=== PATIENT | female | born 1935 | race Caucasian/White ===

== ENCOUNTER 2019-11-28 08:12 | Inpatient (IN) | payer MEDICARE, OTHER ==
[~2019-11-28] VITALS: Ht 149.9 cm; Wt 92.0 kg
--- NOTE | 2019-11-28 09:07 | PHYS DOC ---
Past History Past Medical History: GERD, High Cholesterol, Hypertension, Hypothyroid Past Surgical History: Appendectomy, Hysterectomy, Oophorectomy, Other Additional Past Surgical Histo: BILAT KNEE; Alcohol Use: None General Adult EDM: Chief Complaint: DIZZY/LIGHT HEADED HPI: HPI: 84-year-old female presents with dizziness. Patient states that she has had intermittent feeling of dizziness for couple months. The last 2 days it has been persistent every time goes from lying to sitting. She sits there for 1 hour and then stands up. She does not have as much dizziness when she stands up. She defines it as a room spinning sensation. She does have to hold onto things as she walks and she finds this very irritating. She denies trauma, but has admitted falling couple times recently. She told this to the nurse not to me. She has been eating and drinking normally. She denies fever, chills, chest pain, shortness of breath. She is on blood pressure medicine which includes hydrochlorothiazide. She feels like she has been urinating even more than normal recently. Review of Systems: Review of Systems: Constitutional: Denies fever or chills Eyes: Denies change in visual acuity HENT: Denies nasal congestion or sore throat Respiratory: Denies cough or shortness of breath Cardiovascular: Denies chest pain or edema GI: Denies abdominal pain, nausea, vomiting, bloody stools or diarrhea : Urinary frequency Musculoskeletal: Denies back pain or joint pain Integument: Denies rash Neurologic: Dizziness. Denies headache, focal weakness or sensory changes Endocrine: Denies polyuria or polydipsia Lymphatic: Denies swollen glands Psychiatric: Denies depression or anxiety Heart Score: Risk Factors: Risk Factors: DM, Current or recent (<one month) smoker, HTN, HLP, family history of CAD, obesity. Risk Scores: Score 0 - 3: 2.5% MACE over next 6 weeks - Discharge Home Score 4 - 6: 20.3% MACE over next 6 weeks - Admit for Clinical Observation Score 7 - 10: 72.7% MACE over next 6 weeks - Early Invasive Strategies Allergies: Allergies: Allergies Coded Allergies Type Severity Reaction Last Updated Verified Penicillins Allergy Unknown Hives 11/28/19 Yes adhesive tape Allergy Unknown 11/28/19 Yes milk Allergy Unknown 11/28/19 Yes Uncoded Allergies Type Severity Reaction Last Updated Verified CHOLESTEROL MEDICINE Allergy Unknown 11/28/19 UNKNOWN PAIN MED Allergy Unknown 11/28/19 Physical Exam: PE: Constitutional: Well developed, morbidly obese, well nourished, no acute distress, non-toxic appearance. [] HENT: Normocephalic, atraumatic, bilateral external ears normal, oropharynx moist, no oral exudates, nose normal. [] Eyes: PERRLA, EOMI, conjunctiva normal, no discharge. [] Neck: Normal range of motion, no tenderness, supple, no stridor. [] Cardiovascular: Heart rate regular rhythm, no murmur [] Lungs & Thorax: Bilateral breath sounds clear to auscultation [] Abdomen: Bowel sounds normal, soft, no tenderness, no masses, no pulsatile masses. [] Skin: Warm, dry, no erythema, no rash. [] Back: No tenderness, no CVA tenderness. [] Extremities: No tenderness, no cyanosis, no clubbing, ROM intact, no edema. [] Neurologic: Alert and oriented X 3, normal motor function, normal sensory function, no focal deficits noted. [] Psychologic: Affect normal, judgement normal, mood normal. [] Current Patient Data: Vital Signs: Vital Signs Date Time Temp Pulse Resp B/P (MAP) Pulse Ox O2 Delivery O2 Flow Rate FiO2 11/28/19 08:34 99.1 77 19 157/92 (113) 97 Room Air EKG: EKG: Sinus rhythm, rate 72, normal axis, no ST elevation or depression. [] Radiology/Procedures: Radiology/Procedures: [] Impressions: EXAM: CT Head without IV contrast INDICATION: Reason: dizziness / Spl. Instructions: / History: TECHNIQUE: Multi-detector row CT images were obtained of the head without the use of IV contrast. All CT scans performed at this facility utilize dose optimization techniques as appropriate to the exam, including the following: Automated exposure control and adjustment of the mA and/or KV according to patient size (this includes techniques or standardized protocols for targeted exams where dose is indication/reason for exam). COMPARISON: None FINDINGS: BRAIN PARENCHYMA: No evidence of acute intraparenchymal hemorrhage or infarct. Generalized cortical volume loss and white matter low density compatible chronic ischemic microvascular changes present. 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 VENTRICLES & EXTRA-AXIAL SPACES: Ventricles are within normal limits. Basilar cisterns are patent. No pathologic extra-axial fluid collection or mass. ORBITS: Orbital contents are unremarkable. SINUSES: Visualized paranasal sinuses and mastoid air cells are clear. OSSEOUS & SOFT TISSUES: Calvarium and skull base are intact. IMPRESSION: No acute intracranial pathology. Electronically signed by: Dwayne Fuller MD (11/28/2019 12:01 PM) [id number] DICTATED AND SIGNED BY: DWAYNE FULLER MD DATE: 11/28/19 1201 CC: MARY ELLEN LAI DO; TIESHA MCLEAN ~ EXAM: AP View of the chest DATE: 11/28/2019 8:32 AM INDICATION: dizzy COMPARISON: 03/05/2013 FINDINGS: The heart is not enlarged. Aorta is tortuous. Mild bibasilar opacities and right suprahilar opacities may represent atelectasis or developing consolidation. Trace bilateral pleural effusions. No pneumothorax. IMPRESSION: 1. Bilateral parenchymal opacities lung base opacities may represent atelectasis or developing consolidation. 2. Trace bilateral pleural effusions. Electronically signed by: Anderson Lenz MD (11/28/2019 9:31 AM) [id number] DICTATED AND SIGNED BY: ANDERSON LENZ MD DATE: 11/28/19 0931 CC: MARY ELLEN LAI DO; TIESHA MCLEAN ~ Course & Med Decision Making: Course & Med Decision Making Pertinent Labs and Imaging studies reviewed. (See chart for details) The patient's labs are unremarkable. Her chest x-ray suggest possibility of bilateral pneumonia. I have given her azithromycin and Rocephin IV. I will admit her to the hospital. I spoke to Dr. Moreno and he has accepted the patient for admission. [] Dragon Disclaimer: Dragsravani Disclaimer: This electronic medical record was generated, in whole or in part, using a voice recognition dictation system. Departure Departure: Impression: Primary Impression: Pneumonia Qualified Codes: J18.9 - Pneumonia, unspecified organism Disposition: HOME/RESIDENCE PRIOR TO ADM Condition: STABLE Referrals: TIESHA MCLEAN (PCP) Justification of Admission: Justification of Admission: Justification of Admission Dx: Yes Comminuty Aquired Pneumonia: Med-High Risk Pt MARY ELLEN LAI DO Nov 28, 2019 09:07
[2019-11-28] MEDS ORDERED: IV NORMAL SALINE 1,000ML 1,000 ML IV ONE (09:15)
[2019-11-28] MEDS ORDERED: MECLIZINE 12.5 MG TABLET. PO ONE (09:15)
[2019-11-28 09:34] LABS: BASO % 1 % (0-3); EOS # 0.1 x10^3/uL (0.0-0.7); EOS % 1 % (0-3); HEMATOCRIT 35.3 % (36.0-47.0); LYMPH # 1.1 x10^3/uL (1.0-4.8); LYMPH % 19 % (24-48); MEAN CORPUSCULAR HEMOGLOBIN 33 pg (25-35); MEAN CORPUSCULAR HGB CONC 34 g/dL (31-37); MEAN CORPUSCULAR VOLUME 97 fL (79-100); MONO # 0.5 x10^3/uL (0.0-1.1); MONO % 8 % (0-9); NEUT # 4.2 x10^3uL (1.8-7.7); NEUT % 71 % (31-73); PLATELET COUNT 438 x10^3/uL (140-400); RED BLOOD COUNT 3.63 x10^6/uL (3.50-5.40); RED CELL DISTRIBUTION WIDTH 14.1 % (11.5-14.5); WHITE BLOOD COUNT 5.9 x10^3/uL (4.0-11.0)
--- NOTE | 2019-11-28 09:34 | RAD ---
EXAM: AP View of the chest DATE: 11/28/2019 8:32 AM INDICATION: dizzy COMPARISON: 03/05/2013 FINDINGS: The heart is not enlarged. Aorta is tortuous. Mild bibasilar opacities and right suprahilar opacities may represent atelectasis or developing consolidation. Trace bilateral pleural effusions. No pneumothorax. IMPRESSION: 1. Bilateral parenchymal opacities lung base opacities may represent atelectasis or developing consolidation. 2. Trace bilateral pleural effusions. Electronically signed by: Anderson Cyr MD (11/28/2019 9:31 AM) [id number]
[2019-11-28 09:35] LABS: CALCIUM 9.4 mg/dL (8.5-10.1); CREATININE 1.1 mg/dL (0.6-1.0); GFR 47.3; POTASSIUM 4.5 mmol/L (3.5-5.1)
[2019-11-28 09:48] LABS: ALBUMIN 3.6 g/dL (3.4-5.0); TOTAL BILIRUBIN 0.4 mg/dL (0.2-1.0); TOTAL PROTEIN 7.3 g/dL (6.4-8.2)
--- NOTE | 2019-11-28 09:50 | EKG ---
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
[2019-11-28] MEDS ORDERED: AZITHROMYCIN 500 MG in IV NORMAL SALINE 250ML 250 ML IV ONE (11:45)
--- NOTE | 2019-11-28 12:04 | RAD ---
EXAM: CT Head without IV contrast INDICATION: Reason: dizziness / Spl. Instructions: / History: TECHNIQUE: Multi-detector row CT images were obtained of the head without the use of IV contrast. All CT scans performed at this facility utilize dose optimization techniques as appropriate to the exam, including the following: Automated exposure control and adjustment of the mA and/or KV according to patient size (this includes techniques or standardized protocols for targeted exams where dose is indication/reason for exam). COMPARISON: None FINDINGS: BRAIN PARENCHYMA: No evidence of acute intraparenchymal hemorrhage or infarct. Generalized cortical volume loss and white matter low density compatible chronic ischemic microvascular changes present. 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 VENTRICLES & EXTRA-AXIAL SPACES: Ventricles are within normal limits. Basilar cisterns are patent. No pathologic extra-axial fluid collection or mass. ORBITS: Orbital contents are unremarkable. SINUSES: Visualized paranasal sinuses and mastoid air cells are clear. OSSEOUS & SOFT TISSUES: Calvarium and skull base are intact. IMPRESSION: No acute intracranial pathology. Electronically signed by: Felisha Fuller MD (11/28/2019 12:01 PM) [id number]
[2019-11-28 12:10] LABS: BILIRUBIN,URINE NEG (NEG); CLARITY,URINE CLEAR; COLOR,URINE YELLOW; GLUCOSE,URINE NEG (NEG)
[2019-11-28 12:11] LABS: BACTERIA,URINE 0 /HPF (0-FEW); NITRITE,URINE NEG (NEG); RBC,URINE OCC /HPF (0-2); SQUAMOUS EPITHELIAL CELL,UR FEW /LPF; UROBILINOGEN,URINE 0.2 mg/dL (0.2 mg/dL); WBC,URINE OCC /HPF (0-4)
[2019-11-28] MEDS ORDERED: AZITHROMYCIN 500 MG VIAL. IV ONE (12:26)
[2019-11-28] MEDS ORDERED: IV NORMAL SALINE 50ML 50 ML ONE (12:26)
[2019-11-28] MEDS ORDERED: IV NORMAL SALINE 250ML 250 ML ONE (12:26)
[2019-11-28] MEDS ORDERED: cefTRIAXone SODIUM 1 GM VIAL ONE (12:27)
[2019-11-28 14:30] VITALS: BP 168/60
[2019-11-28 15:13] VITALS: BP 164/66
--- NOTE | 2019-11-28 15:32 | HP ---
ADMIT DATE: 11/28/2019 HISTORY OF PRESENT ILLNESS: The patient is an 84-year-old female patient, who was brought to the Emergency Room of [facility] with complaint of dizziness and lightheadedness. The patient stated that she has intermittent feeling of dizziness for a couple of months. For the last 2 days, it has been persistent every time goes from lying to sitting and she sits there for one-hour then stands up. She does not have any much dizziness when she stands up. She defines it as a room spinning sensation. She does have to hold onto things when she walks and finds this very irritating. She denied any trauma. She has admitted to falling multiple times. She admitted that to me, although she does not say that to the ER physician and her granddaughter also told me that she has been falling multiple times. She denied, however, any nausea or vomiting. Denied any tingling or numbness. Denied any localized weakness. Denied any headache, blurring of vision or diplopia. She was evaluated in the Emergency Room and was extensively evaluated. Her CT scan of the head showed that the patient has no evidence of acute intraparenchymal hemorrhage or infarct, generalized cortical volume loss and white matter low density compatible with chronic ischemic microvascular changes present, tiny lacunar chronic infarct in the right thalamus and in the left frontal periventricular white matter are also noted. The ventricles are within normal limits. Basilar cisterns are patent. No pathology extraaxial fluid collection or mass. The orbital contents are unremarkable. Visualized paranasal sinuses and mastoid air cells are clear. Osseous and soft tissues of the calvarium and skull base are intact. Her chest x-ray showed the patient has mild bibasilar opacities and right suprahilar opacities, may represent atelectasis or developing consolidation, trace bilateral pleural effusion, no pneumothorax. Therefore, the patient was admitted with the diagnoses of acute vestibular neuronitis and possible pneumonia. She was actually swabbed for COVID-19 and was started her on IV Rocephin and Zithromax. She was put on droplet precaution until we get the result of COVID-19. I will start her also on meclizine and consult the neurologist for evaluation and treatment. PAST MEDICAL HISTORY: Significant for hypertension, chronic bronchitis, hypothyroidism, and overactive bladder. PAST SURGICAL HISTORY: Significant for total abdominal hysterectomy, bilateral salpingo-oophorectomy, appendectomy, bilateral cataract extraction. She has also bilateral arthroscopic knee surgery, 2 broken arms, left index finger fracture, status post open reduction and internal fixation. She also has esophagogastroduodenoscopy and colonoscopy with polypectomy. ALLERGIES: SHE IS ALLERGIC TO PENICILLIN, TAPE AND ASPIRIN. MEDICATIONS: She is currently on levothyroxine 100 mcg once a day, losartan/hydrochlorothiazide 100/12.5 one tablet once a day, Nexium 20 mg once a day, citalopram 10 mg once a day. She is also on Centrum Women once a day, ___ one a day, iron 650 mg once a day, Caltrate 600 mg once a day. FAMILY HISTORY: She has one brother younger and has coronary artery disease. She has 4 sisters are all younger, one of them has cancer. Her father in his 50s because of congestive heart failure. Mother at the age of 80 because of stomach cancer. SOCIAL HISTORY: She is , lives alone. She has one stillborn and her daughter because of stomach cancer in her 60s. She has 3 sons and 2 daughters that are alive and healthy. She is an ex-smoker, quit about 8 years ago. She does not drink alcohol or use any recreational drugs. 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 REVIEW OF SYSTEMS: The patient denied any blurring of vision, did have bilateral cataract extraction, but denied any glaucoma or macular degeneration. Denied any earache, tinnitus or sensorineural deafness. Denied any nosebleeds, stuffy nose or postnasal drip. She has history of chronic sinusitis. She denied any sore throat, sore tongue, toothache, hoarseness of voice or difficulty swallowing. Denied any nausea, vomiting, diarrhea or constipation. Denied any hematemesis, melena or hematochezia. Denied any dysuria or hematuria, but did complain of frequency and nocturia. Denied any chest pain, shortness of breath, orthopnea, paroxysmal nocturnal dyspnea. Denied any cough, phlegm or hemoptysis. Did complain of dizziness and lightheadedness and describes feeling as if things spinning around. She is unsteady when she stands up and walks using furniture to support herself. PHYSICAL EXAMINATION: GENERAL: On arrival to the Emergency Room, she looked well and was clearly in no apparent respiratory distress. No pallor, jaundice, cyanosis or thyromegaly. No jugular venous distention. No limb edema. VITAL SIGNS: Her heart rate was 77, blood pressure 157/92, temperature was 99.1, respiratory rate was 19 and oxygen saturation was 97%. HEAD, EYES, EARS, NOSE AND THROAT: Showed normocephalic, atraumatic. NECK: Supple. HEART: Showed normal first and second heart sounds. No gallop or murmur. CHEST: Clear to auscultation. No crepitation or rhonchi. ABDOMEN: Distended, soft, nontender. NEUROLOGIC: She was awake, alert, responding appropriately. All her cranial nerves are intact. EXTREMITIES: She moves all extremities without difficulty. She definitely has no nystagmus and no evidence of any cerebellar dysfunction. LABORATORY DATA: Her lab work on arrival showed a white cell count 5900, hemoglobin 12, hematocrit 35, MCV 97 and platelet count of 438,000 with normal manual differential. Her serum sodium was 130, potassium 4.5, chloride 95, bicarbonate 31, anion gap of 4, BUN 13, creatinine 1.1, estimated GFR was 47 mL per minute, her glucose 115, calcium was 9.4. Total bilirubin, AST, ALT, alkaline phosphatase were normal. Her beta natriuretic peptide was 638. Total protein was 7.3, albumin was 3.6. Urinalysis was essentially unremarkable. Her chest x-ray showed that she has bilateral parenchymal opacities, lung base opacities may represent atelectasis or developing consolidation. She has trace bilateral pleural effusion, so the patient was admitted. CT scan showed chronic ischemic microvascular changes. He has also tiny lacunar chronic infarct in the right thalamus and the left frontal periventricular white matter. She was admitted with: 1. Acute vestibular neuronitis. 2. Community-acquired pneumonia. 3. Hyponatremia, likely due to thiazide diuretics as well as escitalopram. 4. Syndrome of inappropriate antidiuretic hormone secretion. Other medical problems include hypertension, hypothyroidism and chronic bronchitis. My plan is to continue with meclizine. I will continue all her home medication. I will hold on hydrochlorothiazide given her hyponatremia. I will consult Dr. Kurtz as well as physical and occupational therapy. ENDY PAREDES MD DR: AJITH/neville JOB#: [id number] / [id number]
[2019-11-28] MEDS ORDERED: LEVO100T5 PO (15:34)
[2019-11-28] MEDS ORDERED: LOSA1TAB25 PO (15:34)
[2019-11-28] MEDS ORDERED: FERR236T2 PO (15:34)
[2019-11-28] MEDS ORDERED: ESOM20CA PO (15:34)
[2019-11-28] MEDS ORDERED: CA/D1TAB11 PO (15:34)
[2019-11-28] MEDS ORDERED: ESCITALOPRAM OX10 MG PO (15:34)
[2019-11-28] MEDS ORDERED: MULT-647 PO (15:34)
[2019-11-28] MEDS ORDERED: MULT-650 PO (15:34)
--- NOTE | 2019-11-28 17:04 | NUR ---
PATIENT IS 84 Y O PLEASANT FEMALE, ADMITTED TO THE UNIT FROM ED, PT ARRIVED BY EMS , TRANSFERRED WITH ASSIST X 2. PATIENT IS A/O X4, C/O DIZZINESS. PATIENT WAS TESTED FOR COVID IN ED, PATIENT IS PLACED ON ISOLATION, TEST FOR COVID IS PENDING. PT DOES NOT EXPERIENCE ANY COUGH, SOA, DENIES ANY OTHER S/S R/T COVID. PATIENT ORIENTED TO THE ROOM AND HOSPITAL POLICIES, PT VERBALIZED UNDERSTANDING. CONSULT FOR DR JUARES PLACED AND PAGED. WILL CONTINUE TO MONITOR.
[2019-11-28 19:30] VITALS: BP 170/62
[2019-11-28] MEDS ORDERED: MELA3TAB4 PO (21:18)
[2019-11-28] MEDS: MELATONIN 3 MG TABLET PO PRN (21:56)
[2019-11-28] MEDS: MECLIZINE 12.5 MG TABLET. PO PRN (21:58)
[2019-11-28 22:32] VITALS: BP 183/80
--- NOTE | 2019-11-29 05:50 | NUR ---
Pt's BP steadily rising overnight. 181/72 reading this AM. notified and ordered to give 0900 dose of Losartan now. Will notify oncoming RN and recheck BP in 1 hr.
[2019-11-29 06:00] VITALS: BP 181/72
[2019-11-29] MEDS ORDERED: LOSARTAN 50 MG TABLET. ONE (06:08)
[2019-11-29] MEDS: LOSARTAN 50 MG TABLET. PO SCH (06:19)
[2019-11-29 07:47] LABS: HEMATOCRIT 25.3 % (36.0-47.0); HEMOGLOBIN 8.6 g/dL (12.0-15.5); RED BLOOD COUNT 2.55 x10^6/uL (3.50-5.40); RED CELL DISTRIBUTION WIDTH 14.2 % (11.5-14.5); WHITE BLOOD COUNT 4.7 x10^3/uL (4.0-11.0)
[2019-11-29 08:01] LABS: ALBUMIN 3.2 g/dL (3.4-5.0); ALBUMIN/GLOBULIN RATIO 0.9 (1.0-1.7); CALCIUM 8.9 mg/dL (8.5-10.1); CREATININE 0.9 mg/dL (0.6-1.0); GFR 59.7; POTASSIUM 4.5 mmol/L (3.5-5.1); TOTAL BILIRUBIN 0.4 mg/dL (0.2-1.0); TOTAL PROTEIN 6.7 g/dL (6.4-8.2)
[2019-11-29] MEDS: PANTOPRAZOLE 40 MG TABLET. PO SCH (08:25)
[2019-11-29] MEDS: FERROUS SULFATE 325 MG TABLET. PO SCH (08:25)
[2019-11-29] MEDS: CETIRIZINE HCL 10 MG TABLET PO SCH (08:25)
[2019-11-29] MEDS ORDERED: [UNRECOGNIZED DRUG - OTHER] PO SCH (09:00)
[2019-11-29] MEDS ORDERED: IRON PO SCH (09:00)
[2019-11-29] MEDS ORDERED: LUTEIN PO SCH (09:00)
[2019-11-29] MEDS ORDERED: MULTIVITS MIN PO SCH (09:00)
[2019-11-29] MEDS ORDERED: LEVOTHYROXINE 100 MCG TABLET PO SCH (09:00)
[2019-11-29] MEDS ORDERED: [UNRECOGNIZED DRUG - OTHER] PO SCH (09:00)
[2019-11-29 10:36] VITALS: BP 157/74
[2019-11-29] MEDS: AZITHROMYCIN 250 MG TABLET. PO SCH (14:03)
[2019-11-29] MEDS ORDERED: CALCIUM CARBONATE 500 MG TAB.CHEW PO PRN (14:30)
[2019-11-29 15:43] VITALS: BP 172/68
--- NOTE | 2019-11-29 16:55 | NUR ---
TEST FOR COVID RESULT IS NEGATIVE, PATIENT DOES NOT EXHIBIT S/S RELATED TO COVID VIRUS. MD NOTIFIED, AIRBORNE AND CONTACT PRECAUTIONS ARE NO LONGER NEEDED, PT IS OFF THE ISOLATION.
--- NOTE | 2019-11-29 17:32 | PN ---
DATE: SUBJECTIVE: The patient is sitting at the edge of the bed, eating breakfast comfortably. When I examined her, she did complain of left-sided headache. Continued to complaining of dizziness and things are spinning around, particularly if she attempted to lie flat. She did work with physical therapy this morning, although she could not get out to the corridor as her COVID status still pending. PHYSICAL EXAMINATION: GENERAL: When I examined her, she looked well and was clearly in no apparent respiratory distress. She was pale, but no jaundice or cyanosis. No lymphadenopathy, no thyromegaly. No jugular venous distention. No lower limb edema. VITAL SIGNS: Her heart rate was 70, blood pressure 157/74, temperature was 97.9, respiratory rate 20, and oxygen saturation was 96%. HEAD, EYES, EARS, NOSE AND THROAT: Showed normocephalic, atraumatic. NECK: Supple. HEART: Showed normal first and second heart sounds. No gallop, rub or murmur. CHEST: Clear to auscultation. No crepitation or rhonchi. ABDOMEN: Distended, soft, nontender. NEUROLOGIC: She was awake, alert, responding appropriately. All cranial nerves intact. She moves extremities without difficulty. She ambulates without assistance or assistive devices. Examination of both ears showed normal external pinna, normal external auditory meatus and the tympanic membrane on both sides was normal. Her intake and output are incompletely recorded. LABORATORY DATA: Her lab work this morning showed a serum sodium of 132, potassium 4.5, chloride 99, bicarbonate 27, anion gap of 6, BUN 9, creatinine 0.9, estimated GFR was 59 mL per minute. Her glucose was 97, calcium was 8.9. Total bilirubin, AST, ALT, alkaline phosphatase were normal. Total protein was 6.7, albumin was 3.2. Her white cell count was 4700, hemoglobin 8.6, hematocrit 25, MCV 99 and platelet count 275,000. Urinalysis was essentially unremarkable. ASSESSMENT: 1. Acute vestibular neuronitis. 2. Community-acquired pneumonia. 3. Hyponatremia, likely due to thiazide diuretics as well as citalopram. 4. She is known to have hypertension, hypothyroidism, overactive bladder. PLAN: To continue with IV antibiotic. Continue with her medications including meclizine 12.5 mg every 6 hours as needed. I will wait for the result of her COVID test and evaluation by Dr. Kurtz and we will decide further management accordingly. ENDY PAREDES MD DR: AJITH/neville JOB#: [id number] / [id number]
[2019-11-29 19:43] VITALS: BP 159/59
--- NOTE | 2019-11-29 21:58 | NUR ---
Pt was laying down in bed during assessment. Pt states she feels less dizzy but still has dizzy spells during the day. Pt was pleasant and orientated x4. Pt denies any complaints of pain during assessment. Pt. family member dropped off shoes in ED. Nursing timekeeping supervisor brought shoes up to unit. Shoes where then given to pt. and documented in pt. belonging. Pt. states she is ready to go home tomorrow. Pt. is now resting comfortably in bed. Call light within reach. Will continue to monitor.
[2019-11-29 22:25] VITALS: BP 170/61
--- NOTE | 2019-11-30 03:31 | CONS ---
DATE OF CONSULTATION: 11/28/2019 PULMONARY CONSULTATION REFERRING PHYSICIAN: Dr. Moreno. REASON FOR CONSULTATION: Severe dizziness. HISTORY OF PRESENT ILLNESS: This is an 84-year-old right-handed female who was admitted through Emergency Room on account of intermittent dizziness described as "spinning of the head" for approximately 2 months. These symptoms have worsened in the last 2 days and the dizziness and the spinning is aggravated by lying back into the bed and sometimes when she changes her body positions or turning head quickly. She denies nausea, vomiting, chest pain, shortness of breath, palpitation, dysarthria or dysphagia. The patient admitted to several falls because of the dizziness. She denies any head injuries. 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 The patient stated she has been seen recently by ENT specialist and she probably has sinusitis. The patient was placed on meclizine at 12.5 mg every 6 hours p.r.n. for dizziness. She was swabbed for COVID-19, but the result is still pending. Chest x-ray revealed evidence of bilateral pleural effusion and mild bibasilar opacities and right suprahilar opacities. It was thought that patient might have pneumonia and she was placed on Rocephin and Zithromax intravenously. PAST MEDICAL HISTORY: Significant for hypertension, bronchitis, hypothyroidism and overactive bladder. PAST SURGICAL HISTORY: Positive for total abdominal hysterectomy, appendectomy, bilateral cataract extraction, bilateral arthroscopic knee surgeries, fracture of both arms, fracture of the left index finger and polypectomy by colonoscopy. SOCIAL HISTORY: The patient is . She lives by herself. Daughter, at the age of 60, from gastric cancer. She had 2 daughters and 3 sons. She denies smoking, alcohol drinking or illicit drug use. FAMILY HISTORY: One brother had coronary artery disease. One sister had cancer. Father at age of 50 because of congestive heart failure and mother at the age of 80 due to gastric cancer. CURRENT HOME MEDICATIONS: Levothyroxine 100 mcg daily, losartan/hydrochlorothiazide 100/12.5 mg daily, Nexium 20 mg daily, citalopram 10 mg daily and multivitamins and aspirin along with vitamin D and calcium. ALLERGIES: PENICILLIN, TAPE and ASPIRIN. REVIEW OF SYSTEMS: A 12-point review of system was performed as mentioned above in history of present illness. PHYSICAL EXAMINATION: GENERAL: Well-developed, well-nourished female, not in acute distress. She weighs 93 kilos. VITAL SIGNS: Blood pressure 170/62, respiratory rate 20, pulse is 65, temperature 98.3, oxygen saturation 96% on room air. HEENT: Normocephalic, atraumatic, otherwise unremarkable. NECK: Supple. Negative for carotid bruit, lymphadenopathy or thyromegaly. LUNGS: Clear to A and P. CARDIOVASCULAR: Regular rate and rhythm, normal S1, S2. There is no S3, S4 or murmurs. ABDOMEN: Soft. Bowel sounds positive. EXTREMITIES: Negative for cyanosis, clubbing or pitting edema. NEUROLOGICAL EXAM: Mental Status: The patient is alert and oriented x 3. Speech is fluent. There is no language dysfunction. Memory, judgment, and abstracting thinking are normal. The patient denies hallucination or delusion. CRANIAL NERVES: Visual babb are full. The pupils are reactive to light and accommodation. The extraocular movements are intact. There is no nystagmus. There is no facial motor or sensory deficit. Hearing is slightly diminished on the left side. The palate is elevated symmetrically. Sternocleidomastoid muscles are powerful bilaterally. The patient shrugs her shoulders symmetrically, protrudes her tongue in the midline without fasciculation or atrophy. MOTOR: No focal muscle bulk was seen. The tone is normal. Strength is 5/5 throughout. SENSORY EXAMINATION: Revealed normal pinprick, light touch, vibratory and position senses. Deep tendon reflexes were asymmetric and hypoactive with absent Achilles responses. Gait not tested. LABORATORY DATA: CBC revealed white blood cells of 5.9 thousand, hemoglobin 12, hematocrit of 35.3, platelet count 438,000. Chemistry revealed sodium of 130, potassium 4.5, chloride 95, CO2 of 31, BUN 13, creatinine 1.1, glucose 115, calcium is 9.4. Liver enzymes are normal. ____. Troponin level is normal. Urinalysis is normal. Coronavirus PCR non-detected. IMPRESSION: 1. Intermittent dizzy spell described as spinning, rule out vestibulitis versus benign positional vertigo. 2. Possible community-acquired pneumonia. 3. Multiple medical problems include hypertension, hypothyroidism and chronic bronchitis. RECOMMENDATIONS: 1. Continue with current management initiated by Dr. Moreno. 2. Agree with meclizine and increase it gradually to 25 mg t.i.d. 3. Vestibular exercise and physical therapy. M Jimmy AUGUST MD DR: CATARINO/neville JOB#: [id number] / [id number]
[2019-11-30 05:36] VITALS: BP 194/79
[2019-11-30] MEDS: LEVOTHYROXINE 100 MCG TABLET PO SCH (06:14)
[2019-11-30 06:40] LABS: HEMATOCRIT 36.9 % (36.0-47.0); HEMOGLOBIN 12.4 g/dL (12.0-15.5)
[2019-11-30 07:04] LABS: CALCIUM 9.4 mg/dL (8.5-10.1); GFR 52.8; POTASSIUM 3.8 mmol/L (3.5-5.1)
[2019-11-30] MEDS: LOSARTAN 50 MG TABLET. PO SCH (08:18)
[2019-11-30] MEDS: CETIRIZINE HCL 10 MG TABLET PO SCH (08:18)
[2019-11-30] MEDS: PANTOPRAZOLE 40 MG TABLET. PO SCH (08:18)
[2019-11-30] MEDS: AZITHROMYCIN 250 MG TABLET. PO SCH (08:18)
[2019-11-30] MEDS: MECLIZINE 12.5 MG TABLET. PO PRN (08:18)
[2019-11-30] MEDS: FERROUS SULFATE 325 MG TABLET. PO SCH (08:18)
[2019-11-30] MEDS: amLODIPine BESYLATE 5 MG TABLET PO SCH (09:07)
[2019-11-30 09:54] VITALS: BP 154/63
[2019-11-30 14:01] VITALS: BP 126/83
[2019-11-30] MEDS ORDERED: MECLIZINE 12.5 MG TABLET. PO PRN (15:45)
--- NOTE | 2019-11-30 15:55 | PN ---
DATE: SUBJECTIVE: The patient continues to have mild dizziness described as spinning, mainly when she changes her body positions and turn the head backwards. She denies nausea, vomiting, headaches, chest pain, shortness of breath or palpitation, dysarthria or dysphagia. OBJECTIVE: GENERAL: Well-developed, well-nourished female, not in any acute distress. VITAL SIGNS: Blood pressure 159/59, respiratory rate 20, pulse is 66 and regular, temperature 98.1, oxygen saturation 94% on room air. HEENT: Normocephalic, atraumatic, otherwise unremarkable. NECK: Supple. Negative for carotid bruit, lymphadenopathy or thyromegaly. LUNGS: Clear to A and P. CARDIOVASCULAR: Regular rate and rhythm. Normal S1, S2. There is no S3, S4 or murmur. ABDOMEN: Soft. Bowel sounds positive. EXTREMITIES: Negative for cyanosis, clubbing or edema. NEUROLOGICAL EXAM: Normal mental status and intact cranial nerves. There is no focal motor or sensory deficit. Deep tendon reflexes were asymmetric and hypoactive with absent Achilles responses. Gait: The stance is more steady. LABORATORY DATA: CBC revealed white blood cells of 4.7 thousand, hemoglobin 8.6, hematocrit 25.3, platelet count 275,000. Chemistry: Sodium 132, potassium 4.5, chloride 99, CO2 of 27, BUN 6, creatinine 0.9, glucose is 97. Liver enzymes are normal. IMPRESSION: 1. Dizziness, described as vertigo, aggravated by changing head positions, mainly turning backwards. When she changed her body positions and turning the head, she will not feel much vertigo. Underlying possible vestibulopathy versus benign positional vertigo may have contributed to the current symptoms; however, posterior fossa pathology should be ruled out and can be done by doing MRI as an outpatient. 2. Multiple medical problems include hypertension, hypothyroidism, chronic bronchitis. 3. Significant change in hemoglobin, compared to that from yesterday, which suggest anemia. 4. Possible community-acquired pneumonia. RECOMMENDATIONS: 1. Continue with current management initiated by Dr. Moreno. 2. Repeat CBC in the morning. 3. Continue with vestibular exercise and physical therapy. M Jimmy AUGUST MD DR: CATARINO/neville JOB#: [id number] / [id number]
--- NOTE | 2019-11-30 19:19 | PN ---
DATE: 11/30/2019 SUBJECTIVE: The patient continues to have intermittent dizziness described as spinning mainly when she tilts her head backward. She denies nausea, vomiting, chest pain, shortness of breath or palpitation. Repeat CBC today revealed hemoglobin is 12.4 which is back to the baseline. I think the hemoglobin reported yesterday was not correct. The patient has had elevated blood pressure throughout the night. Therefore, ____ at 5 mg has been added. Blood pressure now is back to the baseline. OBJECTIVE: GENERAL: Well-developed, well-nourished female, not in acute distress. VITAL SIGNS: Blood pressure 159/59, respiratory rate 20, pulse is 66, temperature is 98.1, oxygen saturation 94% on room air. HEENT: Normocephalic, atraumatic, otherwise, unremarkable. NECK: Supple. Negative for carotid bruit, lymphadenopathy or thyromegaly. LUNGS: Clear to A and P. CARDIOVASCULAR: Regular rate and rhythm, normal S1, S2. ABDOMEN: Soft. Bowel sounds positive. EXTREMITIES: Negative for cyanosis, clubbing or edema. NEUROLOGICAL EXAM: Normal mental status and intact cranial nerves. There is no focal motor or sensory deficit. Deep tendon reflexes were hypoactive with absent Achilles responses. Gait: The stance is steady. The patient tilted her head backward and she felt spinning. IMPRESSION: 1. Vertigo induced by tilting the head backwards and changing her body positions or turning head quickly. 2. Multiple medical problems include hypertension, hypothyroidism and community-acquired pneumonia. RECOMMENDATIONS: 1. Continue with current management initiated by Dr. Moreno. 2. Vestibular exercise and physical therapy. 3. In case of continuous vertigo, brain MRI may be performed on an outpatient basis. M Jimmy AUGUST MD DR: CATARINO/neville JOB#: [id number] / [id number]
[2019-11-30 19:30] VITALS: BP 145/65
--- NOTE | 2019-11-30 20:02 | PN ---
DATE: SUBJECTIVE: The patient was admitted with worsening vertigo with things are spinning around. She continued to be unsteady on her feet. She unfortunately is unable to climb stairs. She has to climb about 12 stairs in her home. She lives alone. She also has pneumonia and when I examined her this afternoon, she was sitting in chair, in no apparent respiratory distress; however, she continued to have episodes of dizziness where she is very unsteady on walking. PHYSICAL EXAMINATION: GENERAL: When I examined her, she was somewhat pale, nonjaundiced, cyanosis or thyromegaly. No jugular venous distention. No limb edema. VITAL SIGNS: Her heart rate was 65, blood pressure was 126/83, temperature was 98.4, respiratory rate 20, and oxygen saturation was 95%. HEAD, EYES, EARS, NOSE, AND THROAT: Normocephalic, atraumatic. NECK: Supple. HEART: Showed normal first and second heart sounds. No gallop, rub or murmur. CHEST: Clear to auscultation. No crepitation or rhonchi. ABDOMEN: Distended, soft, nontender. No guarding or rigidity. No organomegaly. All hernial orifice intact. Bowel sounds normal. NEUROLOGIC: She is awake, alert, responding appropriately. All cranial nerves intact. She moves extremities without difficulty. She ambulates with a walker; however, she continued to be unsteady. Her intake over the last 24 hours was 2016. No output was recorded. LABORATORY DATA: Her lab work this morning showed hemoglobin 12.4, hematocrit 36.9 and her chemistry showed a serum sodium 136, potassium 3.8, chloride 99, bicarbonate 30, anion gap of 7, BUN 10, creatinine 1, estimated GFR was 53 mL per minute. Her glucose was 96 and calcium was 9.4. Her total protein was 6.7, albumin 3.2. ASSESSMENT: 1. Acute vestibular neuronitis versus benign positional vertigo. The patient continued to be unsteady on her feet. 2. Community-acquired pneumonia. 3. Hypertension. 4. Hypothyroidism. 5. Chronic bronchitis. 6. Hyponatremia that has resolved. PLAN: My plan is to continue with IV Rocephin and Zithromax. Continue with added amlodipine for better control of her blood pressure. As per Dr. Kurtz's recommendation, I will increase her meclizine to 25 mg every 6 hours. ENDY PAREDES MD DR: AJITH/neville JOB#: [id number] / [id number]
[2019-11-30 23:14] VITALS: BP 159/63
[2019-12-01] MEDS: LEVOTHYROXINE 100 MCG TABLET PO SCH (05:08)
[2019-12-01 05:39] VITALS: BP 180/73
[2019-12-01] MEDS: PANTOPRAZOLE 40 MG TABLET. PO SCH (08:23)
[2019-12-01] MEDS: AZITHROMYCIN 250 MG TABLET. PO SCH (08:24)
[2019-12-01] MEDS: LACTOBACILLUS RHAMNOSUS GG 1 CAPSULE. PO SCH ×2 (08:24→20:34)
[2019-12-01] MEDS: FERROUS SULFATE 325 MG TABLET. PO SCH (08:24)
[2019-12-01] MEDS: LOSARTAN 50 MG TABLET. PO SCH (08:24)
[2019-12-01] MEDS: amLODIPine BESYLATE 5 MG TABLET PO SCH (08:24)
[2019-12-01] MEDS: CETIRIZINE HCL 10 MG TABLET PO SCH (08:29)
[2019-12-01 11:03] VITALS: BP 157/59
--- NOTE | 2019-12-01 12:35 | PN ---
DATE: SUBJECTIVE: The patient is resting, slightly propped up in bed, in no apparent distress. She continued to complain of feeling dizzy and unsteady. She did participate with physical therapy. She attempted even stairs, but she says she has continued to be very unsteady and she is scared that she will not be able to go back home on her own, given that she has stairs in her house. PHYSICAL EXAMINATION: GENERAL: When I examined her this morning, she looked well and was clearly in no apparent respiratory distress. No pallor, jaundice, cyanosis or thyromegaly. No jugular venous distention. No lower limb edema. VITAL SIGNS: Her heart rate was 74, blood pressure was 180/73, temperature was 98.1, respiratory rate was 18 and oxygen saturation was 95%. HEENT: Showed normocephalic, atraumatic. NECK: Supple. CARDIAC: Normal first and second heart sounds. No gallop or murmur. CHEST: Clear to auscultation. No crepitation or rhonchi. ABDOMEN: Distended, soft, nontender. NEUROLOGIC: She was awake, alert, responding appropriately. She continued to complain of things spinning around, although I have not seen any nystagmus or cerebellar dysfunction. Her intake was 1470, no output was recorded. LABORATORY DATA: Her chemistries showed a serum sodium 136, potassium 3.8, chloride 99, bicarbonate 30, anion gap of 7, BUN 10, creatinine 1, estimated GFR was 53 mL per minute. Her glucose was 96, calcium was 9.4 and TSH was normal at 0.962. Her hemoglobin was 12.4, hematocrit 36.9. ASSESSMENT: 1. Acute vestibular neuritis versus benign paroxysmal positional vertigo. The patient continued to complain of things spinning around and unsteady on her feet. She participates with physical therapy and attempted even climbing stairs. She has continued to be very apprehensive about going home. 2. Community-acquired pneumonia. 3. Hypertension. 4. Hypothyroidism, clinically and biochemically euthyroid. 5. Chronic bronchitis. 6. Hyponatremia, it has resolved. Her sodium is now up to 136 mEq per liter. PLAN: To continue with IV Rocephin and Zithromax. Continue with all her other medications. Continue with physical and occupational therapy. ENDY PAREDES MD DR: Rebekah JOB#: [id number] / [id number]
--- NOTE | 2019-12-01 14:23 | PN ---
DATE: SUBJECTIVE: The patient denies any new medical or neurological complaints; however, she feels depressed because of long staying in the hospital. Also she complains of dizzy spells described as vertigo, described as a spinning when she tilts her head back and forth, but moving the head to right and left would not produce vertigo. OBJECTIVE: GENERAL: Obese female, not in any acute distress. VITAL SIGNS: Blood pressure 157/59, respiratory rate 20, pulse is 70, temperature 98.3, oxygen saturation 95% on room air. HEENT: Normocephalic, atraumatic, otherwise unremarkable. NECK: Supple. Negative for carotid bruit, lymphadenopathy or thyromegaly. LUNGS: Clear to A and P. CARDIOVASCULAR: Regular rate and rhythm, normal S1, S2. There is no S3, S4 or murmur. ABDOMEN: Soft. Bowel sounds positive. EXTREMITIES: Negative for cyanosis, clubbing or pitting edema. NEUROLOGICAL EXAM: Normal mental status and intact cranial nerves. There is no nystagmus. There is no focal motor or sensory deficit. Deep tendon reflexes were symmetric and hypoactive with absent Achilles responses. Gait: The stance is steady. IMPRESSION: 1. Vertigo induced by tilting the head backwards, probably represents vestibulopathy versus benign positional vertigo. 2. Multiple medical problems include hypertension, community-acquired pneumonia, hypothyroidism. RECOMMENDATIONS: 1. Continue with current management initiated by Dr. Moreno. 2. Continue with previous neurological recommendations, continue with current neurological recommendation. M Jimmy AUGUST MD DR: CATARINO/neville JOB#: [id number] / [id number]
[2019-12-01 15:56] VITALS: BP 144/66
[2019-12-01 20:14] VITALS: BP 144/48
[2019-12-01] MEDS: MELATONIN 3 MG TABLET PO PRN (20:34)
[2019-12-01 23:33] VITALS: BP 161/94
[2019-12-02 06:31] VITALS: BP 146/89
[2019-12-02] MEDS: LEVOTHYROXINE 100 MCG TABLET PO SCH (06:34)
[2019-12-02] MEDS: amLODIPine BESYLATE 5 MG TABLET PO SCH (07:53)
[2019-12-02] MEDS: LOSARTAN 50 MG TABLET. PO SCH (07:53)
[2019-12-02] MEDS: CETIRIZINE HCL 10 MG TABLET PO SCH (07:53)
[2019-12-02] MEDS: PANTOPRAZOLE 40 MG TABLET. PO SCH (07:53)
[2019-12-02] MEDS: LACTOBACILLUS RHAMNOSUS GG 1 CAPSULE. PO SCH ×2 (07:53→20:16)
[2019-12-02] MEDS: AZITHROMYCIN 250 MG TABLET. PO SCH (07:53)
[2019-12-02] MEDS: FERROUS SULFATE 325 MG TABLET. PO SCH (07:53)
[2019-12-02 11:50] VITALS: BP 155/62
--- NOTE | 2019-12-02 12:23 | PN ---
DATE: 11/28/2019 SUBJECTIVE: The patient is sitting comfortably in her chair, in no apparent distress. She unfortunately continued to feel dizzy and unsteady with things spinning around, though she has no nausea, no vomiting, no documented fall. Nursing staff stated that she continued to complain of dizziness. She walks with a walker with assist. PHYSICAL EXAMINATION: GENERAL: When I examined her, she looked well and was clearly in no apparent respiratory distress. No pallor, jaundice, cyanosis or thyromegaly. No jugular venous distention. No limb edema. VITAL SIGNS: Her heart rate was 64, blood pressure was 146/89, temperature was 97.1, respiratory rate was 18 and oxygen saturation was 98%. HEAD, EYES, EARS, NOSE AND THROAT: Showed normocephalic, atraumatic. NECK: Supple. HEART: Normal first and second heart sounds. No gallop or murmur. CHEST: Shows central trachea, equal bilateral expansion, air entry, vesicular sounds. I could not appreciate any crepitation or rhonchi. ABDOMEN: Distended, soft, nontender. NEUROLOGIC: She was awake, alert, responding appropriately. All cranial nerves intact. She moves extremities without difficulty. She ambulates with a walker. Continued to be unsteady. Her intake over the last 24 hours was 1300, no output was recorded. LABORATORY DATA: Her most recent hemoglobin was 12.4, hematocrit 36.9 and her chemistry showed serum sodium is 136, potassium 3.8, chloride 99, bicarbonate 30, anion gap of 7, BUN 10, creatinine 1. ASSESSMENT: 1. Acute vestibular neuronitis versus benign paroxysmal positional vertigo. The patient continued to complain of things spinning around and unsteady on her feet. She participates with physical therapy and attempted even climbing stairs. She has continued to be apprehensive about going home. 2. Community-acquired pneumonia. 3. Hypertension. 4. Hypothyroidism, clinically and biochemically euthyroid. 5. Chronic bronchitis. 6. Hyponatremia, has resolved. Her sodium is up to 136 mEq per liter. PLAN: To discontinue IV Rocephin and switch her to cefdinir. Continue with physical and occupational therapy. We will discuss with our executive secretary social welfare tomorrow the plan for disposition. ENDY PAREDES MD DR: AJITH/neville JOB#: [id number] / [id number]
[2019-12-02] MEDS: CEFDINIR 300 MG CAPSULE PO SCH ×2 (12:57→20:16)
--- NOTE | 2019-12-02 13:44 | PN ---
DATE: SUBJECTIVE: The patient complains of global headaches. She denies nausea, vomiting, chest pain, shortness of breath or palpitation. She also continued to have intermittent dizzy spell mainly when she tilts her head backwards. OBJECTIVE: GENERAL: Obese female, not in acute distress. VITAL SIGNS: Blood pressure 155/62, respiratory rate 20, pulse is 71, oxygen saturation is 96%, temperature 98.5. HEENT: Normocephalic, atraumatic, otherwise unremarkable. NECK: Supple. Negative for carotid bruit, lymphadenopathy or thyromegaly. LUNGS: Clear to A and P. CARDIOVASCULAR: Regular rate and rhythm, normal S1, S2. ABDOMEN: Soft. Bowel sounds positive. EXTREMITIES: Negative for cyanosis, clubbing or edema. NEUROLOGICAL EXAM: Mental Status: The patient is alert and oriented x 3. The speech is fluent. There is no language dysfunction. Memory, judgment, and abstract thinking are normal. The patient denies hallucination or delusion. Cranial nerves are intact. No nystagmus. No focal motor or sensory deficit. Deep tendon reflexes were symmetric and hypoactive with absent Achilles responses. Gait: The stance is more steady. IMPRESSION: 1. Acute vertigo, rule out vestibulopathy versus benign positional vertigo. 2. Multiple medical problems include hypertension, community-acquired pneumonia and hypothyroidism. RECOMMENDATIONS: 1. Continue with current management initiated by Dr. Moreno. 2. Continue with current vestibular exercise. M Jimmy AUGUST MD DR: CATARINO/neville JOB#: [id number] / [id number]
[2019-12-02 16:30] VITALS: BP 145/67
[2019-12-02 19:48] VITALS: BP 156/69
[2019-12-03] MEDS: LEVOTHYROXINE 100 MCG TABLET PO SCH (05:49)
[2019-12-03 06:34] LABS: HEMATOCRIT 33.2 % (36.0-47.0); HEMOGLOBIN 11.2 g/dL (12.0-15.5); RED BLOOD COUNT 3.36 x10^6/uL (3.50-5.40); RED CELL DISTRIBUTION WIDTH 14.8 % (11.5-14.5); WHITE BLOOD COUNT 6.3 x10^3/uL (4.0-11.0)
[2019-12-03 07:05] LABS: GFR 52.8; POTASSIUM 5.3 mmol/L (3.5-5.1)
[2019-12-03] MEDS: CEFDINIR 300 MG CAPSULE PO SCH (08:01)
[2019-12-03] MEDS: FERROUS SULFATE 325 MG TABLET. PO SCH (08:01)
[2019-12-03] MEDS: LACTOBACILLUS RHAMNOSUS GG 1 CAPSULE. PO SCH (08:01)
[2019-12-03] MEDS: PANTOPRAZOLE 40 MG TABLET. PO SCH (08:01)
[2019-12-03] MEDS: AZITHROMYCIN 250 MG TABLET. PO SCH (08:02)
[2019-12-03] MEDS: CETIRIZINE HCL 10 MG TABLET PO SCH (08:02)
[2019-12-03] MEDS: LOSARTAN 50 MG TABLET. PO SCH (08:03)
[2019-12-03] MEDS: amLODIPine BESYLATE 5 MG TABLET PO SCH (08:04)
[2019-12-03 11:09] VITALS: BP 137/68
--- NOTE | 2019-12-03 12:51 | PN ---
DATE: REFERRING PHYSICIAN: Dr. Moreno. SUBJECTIVE: The patient denies any new medical or neurological complaints. She stated her dizziness has almost gone away. She denies nausea, headaches, chest pain, shortness of breath or palpitation. OBJECTIVE: GENERAL: Well-developed, well-nourished female, not in acute distress. VITAL SIGNS: Blood pressure 156/69, respiratory rate 18, pulse is 70, temperature is 97.2, oxygen saturation is 96% on room air. HEENT: Normocephalic, atraumatic, otherwise unremarkable. NECK: Supple. Negative for carotid bruit, lymphadenopathy or thyromegaly. LUNGS: Clear to A and P. CARDIOVASCULAR: Regular rate and rhythm. Normal S1, S2. There is no S3, S4 or murmur. ABDOMEN: Soft. Bowel sounds positive. EXTREMITIES: Negative for cyanosis, clubbing or edema. NEUROLOGICAL EXAM: Normal mental status and intact cranial nerves. There is no nystagmus. There is no facial motor or sensory deficit. Deep tendon reflexes were symmetric and hypoactive with absent Achilles responses. Gait: The stance is more steady. IMPRESSION: 1. Acute vertigo, probably due to underlying acute vestibular neuritis/vestibulopathy versus benign positional vertigo. The vertigo has been improved by vestibular exercises. 2. Multiple medical problems include hypertension, community-acquired pneumonia and hypothyroidism. RECOMMENDATIONS: 1. Continue with current management initiated by Dr. Moreno. 2. Continue with vestibular exercise. M Jimmy AUGUST MD DR: CATARINO/neville JOB#: [id number] / [id number]
[2019-12-03] MEDS ORDERED: CEFD300C PO (14:44)
[2019-12-03] MEDS ORDERED: AZIT250T PO (14:56)
[2019-12-03] MEDS ORDERED: MECL-75 PO (14:56)
[2019-12-03] MEDS ORDERED: MECLIZINE 12.5 MG TABLET. PO PRN (15:00)
--- NOTE | 2019-12-03 15:19 | DS ---
DATE OF DISCHARGE: 11/28/2019 HOSPITAL COURSE: The patient is an 84-year-old female patient who was admitted through the Emergency Room with complaint of dizziness and unsteadiness. Initial investigation showed no evidence of any intracranial pathology. We admitted her with diagnosis of possible acute vestibular neuronitis versus benign positional paroxysmal vertigo. She was seen by Dr. Kurtz who basically concurred with the diagnosis. She was also found to have possible community-acquired pneumonia for which we treated her with IV Rocephin and Zithromax. The patient continued, however, to be dizzy and expressed her apprehension to go home. She has to climb stairs and she lives alone and therefore arrangement was made for her to be admitted to a long term facility to continue the process of rehabilitation there. PHYSICAL EXAMINATION: GENERAL: When I examined her today, she was sitting at the edge of the bed comfortably in no apparent respiratory distress. No pallor, jaundice, cyanosis or thyromegaly. No jugular venous distention. No limb edema. VITAL SIGNS: Her heart rate was 69, blood pressure was 137/68, temperature was 98.3, respiratory rate 20, and oxygen saturation was 95%. HEAD, EYES, EARS, NOSE AND THROAT: Showed normocephalic, atraumatic. NECK: Supple. HEART: Showed normal first and second heart sounds. No gallop, rub or murmur. CHEST: Clear to auscultation. No crepitation or rhonchi. ABDOMEN: Distended, soft, nontender. NEUROLOGIC: She is awake, alert, responding appropriately. All cranial nerves intact. She moves extremities without difficulty. She ambulates with a walker; however, she continued to complain of being dizzy and things spinning around, although she has no nausea, no vomiting, no documented fall. Her intake over the last 24 hour was 1330. No output was recorded. LABORATORY DATA: Showed a white cell count 6300, hemoglobin 11, hematocrit 33, MCV 99, and platelet count of 419,000. Her chemistry showed a serum sodium 136, potassium 5.3, chloride 103, bicarbonate was 28, anion gap of 5, BUN 11, creatinine 1, estimated GFR was 52 mL per minute. Her glucose was 92, calcium was 9, and TSH was normal at 0.962. Urinalysis essentially unremarkable. Her COVID by PCR was not detected. DISCHARGE MEDICATIONS: The patient was discharged to [facility] to continue on azithromycin 250 mg p.o. daily for 2 days, cefdinir 300 mg twice a day for 7 days, meclizine 25 mg every 6 hours as needed. Should continue with calcium with vitamin D one tablet once a day, escitalopram oxalate 10 mg daily, Nexium 20 mg daily, ferrous gluconate 1 tablet daily, levothyroxine sodium 100 mcg daily, losartan/hydrochlorothiazide 100/12.5 one tablet once a day, melatonin 3 mg once a day, multivitamin with mineral 1 tablet once a day. FINAL DISCHARGE DIAGNOSES: 1. Acute vestibular neuronitis versus benign positional paroxysmal vertigo. The patient continued to complain of things spinning around and unsteady on her feet and she continued to be apprehensive about going home given that she has to climb stairs. 2. Community-acquired pneumonia. 3. Hypertension. 4. Hypothyroidism, clinically and biochemically euthyroid. 5. Chronic bronchitis. 6. Hyponatremia that has resolved. Her most recent serum sodium of as this morning was 136. ENDY PAREDES MD DR: AJITH/neville JOB#: [id number] / [id number]
--- NOTE | 2019-12-03 15:20 | NUR ---
PATIENT IS DISCHARGED TO [facility]. DISCHARGE INSTRUCTION DISCUSSED WITH THE PATIENT , PT VERBALIZED UNDERSTANDING. REPORT GIVEN TO NILSA ROSAS.
== END 2019-12-03 16:40 | DRG 178 ==
LOC: ER 08:12 → 1 SOUTH 12:00 → ER 12:50
PROVIDERS: ADMIT Internal Medicine; ATTEND Internal Medicine
DX: J15.6 Pneumonia due to other Gram-negative bacteria (principal); J90 Pleural effusion, not elsewhere classified; E22.2 Syndrome of inappropriate secretion of antidiuretic hormone; H81.20 Vestibular neuronitis, unspecified ear; J15.9 Unspecified bacterial pneumonia; H81.10 Benign paroxysmal vertigo, unspecified ear; E03.9 Hypothyroidism, unspecified; Z60.2 Problems related to living alone; E78.00 Pure hypercholesterolemia, unspecified; K21.9 Gastro-esophageal reflux disease without esophagitis; I10 Essential (primary) hypertension; J42 Unspecified chronic bronchitis; N32.81 Overactive bladder; T50.2X5A Adverse effect of carbonic-anhydrase inhibitors, benzothiadiazides and other diuretics, initial encounter; Z80.0 Family history of malignant neoplasm of digestive organs; Z82.49 Family history of ischemic heart disease and other diseases of the circulatory system; Z87.891 Personal history of nicotine dependence; Z90.49 Acquired absence of other specified parts of digestive tract; Z90.710 Acquired absence of both cervix and uterus; Z98.41 Cataract extraction status, right eye; Z98.42 Cataract extraction status, left eye; Z88.0 Allergy status to penicillin; Z20.828 Contact with and (suspected) exposure to other viral communicable diseases
CPT/HCPCS: 36415; 70450; 71045; 80048; 80053; 81001; 83880; 84443; 84484; 85014; 85018; 85025; 85027; 93005; 96361; 96365; J0456; J0696; J7050; J8597; 95992; 97112; 97116; 97530; 99285-25; J7030; U0003-CS